=== PATIENT | male | born 1940 | race Caucasian/White ===

== ENCOUNTER 2023-12-26 08:30 | Outpatient (CLI) | payer OTHER, SELFPAY | END 2023-12-26 08:31 | disposition home or self-care (01) | LOC: AMB 12-29 19:27 | PROVIDERS: Visit Provider Internal Medicine | DX: R53.1 Weakness (principal) | CPT/HCPCS: A0998 ==

== ENCOUNTER 2025-03-25 20:34 | Emergency (ER) | payer OTHER, SELFPAY ==
--- OUTSIDE RECORDS SUMMARY | 2019-09-03 09:31 | XMS_ITS | Continuity of Care Document ---
Author Organization [facility] Address [address] [address] [place] [address] Phone Care Team Providers Care Diesel Locomotive Crane Operator Name Role Phone Aquilino Costello MD Unavailable Unavailable Allergies, Adverse Reactions, Alerts Substance Reaction Status Criticality azithromycin Active No Information amoxicillin Active No Information cefaclor Active No Information Medications Medication Instructions Dosage Effective Dates (start - stop) Status Comments simvastatin 20 mg tablet take 1 tablet by oral route every day in the evening 20 MG - Active celecoxib 200 mg capsule take 1 capsule by oral route every day as needed 200 MG - Active lisinopril 10 mg-hydrochlorothiazi de 12.5 mg tablet take 1 tablet by oral route every day 1.00 tablet - Active azelastine 137 mcg (0.1 %) nasal spray aerosol spray 1 spray by intranasal route every day in each nostril as needed 1 spray - Active Flovent Diskus 50 mcg/actuation powder for inhalation inhale 1 puff by inhalation route every day 50 MCG - Active Alavert D-12 Allergy-Sinus 5 mg-120 mg tablet,extended release take 1 tablet by oral route every 12 hours 1.00 tablet - Active Vitamin D3 1,000 unit capsule take 1 tablet by oral route every day 1 tablet - Active Glucosamine Chondroitin PLUS 375 mg-100 mg-36 mg-54 mg capsule take 2 tablet by oral route every day 2 tablet - Active Procedures Procedure Date Ugi Endo; W/bx 1/mx Level Iv-surg Path Gross/micro 18 Colonoscopy Flex; W/remov Les- 17 Colonoscopy Flex; W/bx 1/mx Level Iv-surg Path Gross/micro 17 Advance Directives Directive Yes / No Effective Date File Name No Information Encounters Encounter Description Practice Location Reason(s) For Visit Diagnoses Date Provider Providers Copied on Encounter [facility], [address] [address], [facility] [place] [id number], [place] tel:[phone] [facility] No Information 0 Pravin Rolle. [address], [place], [place], [id number] , [place]. tel: [phone] [facility], [address] [address], [facility] [place], [id number], [place] tel:[phone] [facility] Hiatal herniaAbdominal distension (gaseous)Disease of stomach and duodenum, unspecifiedDiaphrag matic hernia without obstruction or gangrene 8 Peyman Goodwin. [address], [place], [place], [id number] , [place]. tel:[phone] Referring Provider: Landon Hammond MD [place], [address] [place], [address]. tel:[phone] [facility], [address] [address], [facility] [place], [id number], [place] tel:[phone] [facility] Chronic diarrheaColorectal polypsInternal hemorrhoidsDiarrhea , unspecifiedBenign neoplasm of sigmoid colonOther hemorrhoidsBenign neoplasm of sigmoid colon 7 Bartolo Morales. [address], [place], [place], [id number] , [place]. [phone] Referring Provider: Fanny Blum, [address] [place], [address]. tel:[phone] Family History Family Member Type Diagnosis Age At Onset Mother Problem (finding) Sister Problem (finding) Alive and well Brother Problem (finding) Alive and well Mother Problem (finding) malignant neop lasm of breast in first degree relative Daughter Problem (finding) Alive and well Son Problem (finding) Alive and well Father Problem (finding) Payers Payer name Insurance type Covered alliance party ID Authoriza tion(s) No Information Social History Type Description Quantity Date Captured Comments Sex Male Smoking Status No Information Chief Complaint And Reason For Visit No Information Reason For Referral Reason For Referral No Information History Of Present Illness Encounter Date Complaint History Of Prese nt Illness No Information Functional Status Date Functional Assessmen t No Information Instructions Date Instruction Additional Infor matgregor Colon Cancer Prevention Related to Colorectal polyps Colon Polyps Related to Color ectal polyps Hemorrhoids Related to Color ectal polyps high fiber diet Related to Color ectal polyps Assessments Type Assessment Date No Information Patient Care Teams Name Effective Dates (start - stop) Status Members No Information
--- OUTSIDE RECORDS SUMMARY | 2019-09-03 09:31 | XMS_ITS | Continuity of Care Document ---
Author Organization [facility] Address [address] [address] [place] [address] Phone Care Team Providers Care Hydrometer Tester Name Role Phone Aquilino Costello MD Unavailable [...] Diagnoses Date Provider Providers Copied on Encounter [facility], [address] [address], [facility] [place], [id number], [place] tel:[phone] [facility] No Information 0 Pravin Rolle. [address] [facility], [place], [place], [id number] , [place]. tel: [phone] [facility], [address] [address], [facility] [place], [address], [place] tel:[phone] [facility] Hiatal herniaAbdominal distension (gaseous)Disease of stomach and duodenum, unspecifiedDiaphrag matic hernia without obstruction or gangrene 8 Peyman Goodwin. [address] [facility], [place], [place], [id number] , [place]. tel:[phone] Referring Provider: Landon Hammond MD [place], [address] [place], [address]. tel:[phone] [facility], [address] [address], [facility] [place], [id number], [place] tel:[phone] [facility] Chronic diarrheaColorectal polypsInternal hemorrhoidsDiarrhea , unspecifiedBenign neoplasm of sigmoid colonOther hemorrhoidsBenign neoplasm of sigmoid colon 7 Bartolo Morales. [address] [facility], [place], [place], [id number] , [place]. [phone] Referring Provider: Fanny Blum, [address] [place], [address]. tel:[phone] Family History Family Member Type Diagnosis Age At Onset Mother Problem (finding) Sister Problem (finding) Alive and well Brother Problem (finding) Alive and well Mother Problem (finding) malignant neop lasm of breast in first degree relative Daughter Problem (finding) Alive and well Son Problem (finding) Alive and well Father Problem (finding) Payers Payer name Insurance type Covered republican ID Authoriza tion(s) No Information Social History [...]
--- OUTSIDE RECORDS SUMMARY | 2025-03-25 20:36 | XMS_ITS | Encounter Summary ---
Author Organization [facility] Address [address] [place] [address]. [place] [address] Care Team Providers Care Straw Hat Brim Cutter Operator Name Role Phone Finesse Santana MD Primary Care Provider Landon Farley MD Primary Care Provider Encounter Details Date Type Department Care Team (Late st Contact Info) Description 07/17/2016 [facility] [address] [place] [address] Joel Wynn MD [facility] [address] [place] [address] Pre-operative laboratory examination (Primary Dx) Social History Tobacco Use Types Packs/Day Years Used Date Smoking Tobacco: Former Comments:Quit in 1971 Alcohol Use Standard Drinks/Week Comments No 0 (1 standard drink = 0.6 oz pur e alcohol) Sex and Gender Information Value Date Recorded Sex Assigned at Not on file Legal Sex Male 3:34 AM SENIOR PRODUCT INTEGRITY ENGINEER Gender Identity Not on file Sexual Orientation Not on file documented as of this encounter Plan of Treatment Not on file documented as of this encounter Results * Methicillin Resistant Staph Aureus PCR (07/25/2016 12:20 PM SENIOR PRODUCT INTEGRITY ENGINEER) Specimen Description [facility] Methicillin Resist/Sens S. aureus PCR Negative MRSA Negative: SA Negative MRSA and Staphylococcus aureus target DNA not detected, presumed negative for MRSA and SA colonization or the number of bacteria present may be below the limit of detection for the assay. FDA approved assay performed using Cepheid GeneXpert(R) real-time PCR. NEG [facility] 07/25/2016 12:2 0 PM SENIOR PRODUCT INTEGRITY ENGINEER 07/25/2016 1:28 PM SENIOR PRODUCT INTEGRITY ENGINEER us Joel Wynn MD LAB - MICRO GENERAL LOLY [place]AK Final Result [facility] [address] [place] [address], [facility] [address] [place], [place] [address] [phone] documented in this encounter Visit Diagnoses Diagnosis Pre-operative laboratory examination- Primary Pre-procedural laboratory examination documented in this encounter Additional Health Concerns Infection Onset Date Last Indicated Resolved Time COVID-19 07/19/2021 07/19/2021 08/09/2021 11:4 1 PM SENIOR PRODUCT INTEGRITY ENGINEER documented as of this encounter Care Teams Straw Hat Brim Cutter Operator Relationship Specialty Start Date End Date Finesse Santana MD PCP - General Family Practice 07/10/16 07/24/21 [place] [address] [place] [address] PCP - General 07/25/21 documented as of this encounter
--- OUTSIDE RECORDS SUMMARY | 2025-03-25 20:36 | XMS_ITS | Clinical Summary ---
Author Organization [facility] Address [address] [place] [address] Care Team Providers Care Preparator Name Role Phone Landon Hammond MD Primary Care Provider Allergies Active Allergy Reactions Criticality Noted Date Comments Amoxicillin Rash Low 07/17/2016 Cefaclor Rash Low 07/17/2016 Erythromycin Diarrhea 07/17/2016 Azithromycin Rash Low 07/17/2016 Medications Azelastine HCl (ASTELIN NA) Jessie in nostril as needed Active Celecoxib (CELEBREX PO) Take 200 mg by mouth daily Active Cholecalciferol (VITAMIN D-3 PO) Take 400 Units by mouth daily Active fluticasone (FLONASE) 50 MCG/ACT spray Jessie 2 sprays into both nostrils daily as needed for rhinitis or allergies Active glucosamine-cho ndroitin 500-400 MG CAPS per capsule Take 1 capsule by mouth 3 times daily Active lisinopril-hydr ochlorothiazide (PRINZIDE/ZESTO RETIC) 10-12.5 MG per tablet Take 1 tablet by mouth daily Active loratadine-pseu doePHEDrine (CLARITIN-D 12-HOUR) 5-120 MG per 12 hr tablet Take 1 tablet by mouth 2 times daily as needed for allergies Active SIMVASTATIN PO Take 20 mg by mouth At Bedtime Active vitamin B complex with vitamin C (VITAMIN B COMPLEX) TABS tablet Take 1 tablet by mouth daily Active acetaminophen (TYLENOL) 325 MG tabletIndicatio ns:Status post total right knee replacement Take 3 tablets (975 mg) by mouth every 8 hours 500 tablet 7 Active oxyCODONE (ROXICODONE) 5 MG IR tabletIndicatio ns:Status post total right knee replacement 1 tab po q 4 hrs prn pain scale 1-5, 2 tabs po q 4hrs prn pain scale 6-10 65 tablet 7 Active senna-docusate (SENOKOT-S;SIMI COLACE) 8.6-50 MG per tabletIndicatio ns:Status post total right knee replacement Take 1 tablet by mouth 2 times daily as needed for constipation 60 tablet 1 7 Active Active Problems Problem Noted Date Diagnosed Date S/P total knee arthroplasty 08/12/2016 Social History Tobacco Use Types Packs/Day Years Used Date Smoking Tobacco: Former Comments:Quit in 1971 Alcohol Use Standard Drinks/Week Comments No 0 (1 standard drink = 0.6 oz pur e alcohol) Adolescent Education Answer Date Record ed Getting School Help Needed Not on file 03/23 Sex and Gender Information Value Date Recorded Sex Assigned at Not on file Legal Sex Male 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 Gender Identity Not on file Sexual Orientation Not on file Last Filed Vital Signs Vital Sign Reading Time Taken Comments Blood Pressure 147/83 07/25/2021 3:38 PM OIL PIPE INSPECTOR Pulse 53 07/25/2021 3:38 PM OIL PIPE INSPECTOR Temperature 36.2 C (97.1 F) 07/25/2021 11:06 AM OIL PIPE INSPECTOR Respiratory Rate 17 07/25/2021 3:38 PM OIL PIPE INSPECTOR Oxygen Saturation 99% 07/25/2021 3:38 PM OIL PIPE INSPECTOR Inhaled Oxygen Concentration - - Weight 117.5 kg (259 lb) 07/25/2021 11:13 AM OIL PIPE INSPECTOR Height 172.7 cm (5' 8) 08/12/2016 6:36 AM OIL PIPE INSPECTOR Body Mass Index 39.38 08/12/2016 6:36 AM OIL PIPE INSPECTOR Plan of Treatment Not on file Medical Devices Implanted Type Area Boiler Repairman Device Identifier Shelf Expiration Date Model / Serial / Lot Bone Cement Simplex Full Dose [id number] Implanted:Qty : 1 on 08/12/2016 by Joel Wynn MD at [facility] Cement, Bone Right: Knee [employer] 04/22/2018 [id number] 1 / / [id number] Imp Plate Tibial Zim Nexgen Size 5 Implanted:Qty : 1 on 08/12/2016 by Joel Wynn MD at [facility] Metallic Hardware/Anc hor Right: Knee [employer] 03/22/2026 [id number] 47-01 / / [id number] Imp Comp Femoral Zim Nexgen Lps Option Sz G Rt Implanted:Qty : 1 on 08/12/2016 by Joel Wynn MD at [facility] Total Joint Component/In sert Right: Knee [employer] 03/22/2026-5996-0 17-52 / / [id number] Imp Art Surface Zim Nexgen Lps Gh 5-6 10mm [id number] Implanted:Qty : 1 on 08/12/2016 by Joel Wynn MD at [facility] Total Joint Component/In sert Right: Knee [employer] 09/21/2023-5964-0 42-10 / / [id number] Imp Comp Patella Zim Nexgen 9.0x35mm Implanted:Qty : 1 on 08/12/2016 by Joel Wynn MD at [facility] Total Joint Component/In sert Right: Knee [employer] 04/22/2024-5972-0 65-35 / / [id number] Insurance Exit Games Advance Directives For more information, please contact: [phone] * Full Code (Latest Code Status on File) Date Activated Date Inactivated Comments 08/12/2016 11:50 AM 08/13/2016 3:25 PM Care Teams Preparator Relationship Specialty [place] [address] [place] [address] PCP - General 07/25/21
--- OUTSIDE RECORDS SUMMARY | 2025-03-25 20:36 | XMS_ITS | Clinical Summary ---
Author Organization [facility] Address [address] [place] [address] Care Team Providers Care Almond Blancher Hand Name Role Phone Landon Hammond MD Primary Care Provider Allergies Active Allergy Reactions Criticality Noted Date Comments Amoxicillin Rash 05/15/2009 Cefaclor Hives 10/14/2006 Erythromycin Diarrhea 07/17/2016 Azithromycin Diarrhea 06/28/2016 Medications multivitamin (MVI) tablet Take 1 tablet by mouth once daily. 0 9 Active carbidopa-levodop a, 25-100 mg, (SINEMET 25-100) 25-100 mg tabletIndications :Parkinsonism, unspecified Parkinsonism type (HC) 3 Tablets four times daily. Take 1.5 tabs 4 times/ day 3 Active memantine (NAMENDA) 5 mg tablet Take 1 Tablet (5 mg) by mouth two times daily. 4 Active loratadine (Claritin) 10 mg tablet Take 10 mg by mouth once daily. Active magnesium chelate, mal, threon 200 mg magnesium/scoop powd Mix 1 scoop in liquid then take by mouth at bedtime. Active DULoxetine (CYMBALTA) 60 mg Delayed-release capsuleIndication s:Depression, recurrent Take 2 Capsules (120 mg) by mouth once daily. 180 Capsule 3 5 Active metoprolol succinate (TOPROL XL) 50 mg sustained-release tabletIndications :Frequent PVCs Take 0.5 Tablets (25 mg) by mouth once daily. 45 Tablet 3 5 Active Donepezil 23 mg tabIndications:De mentia in other diseases classified elsewhere, moderate, with mood disturbance (HC) Take 1 Tablet (23 mg) by mouth at bedtime. 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, moderate, with mood disturbance 03/14/2023 Increased urinary frequency 01/02/2023 Sleep disorder 07/01/2022 Parkinsonism 10/08/2021 Tremor 07/31/2021 NSVT (nonsustained ventricular tachycardia) 06/23 Chronic right-sided low back pain without sciati ca 08/21/2020 Overview (08/21/2020): Hx of compression fracture L5 circa 1975 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 S/P total knee arthroplasty 08/12/2016 Allergic rhinitis, cause unspecified 09/28/2009 Cancer of prostate 09/08/2008 Overview (07/15/2017): S/p radical prostatectomy in 2008 Essential hypertension 09/08/2008 Overview (09/05/2009): Updated by system to replace inactive record HYPERLIPIDEMIA 08/08/2003 SINUSITIS/CHRONIC 08/20/1999 OSTEOARTHROSIS, GENERALIZED, MULTIPLE SITES 07/25 DIPLOPIA 08/20/1999 LOW BACK PAIN Resolved Problems Problem Noted Date Diagnosed Date Resolved Date Cognitive impairment 07/09/2021 024 S/P foot surgery 09/30/2013 12/19/2022 Tailor's bunion 03/12/2013 01/20/2024 Hematuria 06/13/2004 12/19/2022 ABDOMINAL PAIN UNSPECIFIED SITE 06/13/2004 07/09/2021 Nocturia 06/13/2004 12/19/2022 PROSTATIC HYPERTROPHY 06/13/20042013 SINUSITIS - ACUTE 08/15/2003 08/29/2003 CHONDROMALACIA, PATELLA 11/14/199907/2020 MYLAGIA - NOS 08/20/1999 12/19/2022 KNEE PAIN 07/15/2017 Encounters Date Type Department Care Team Description 02/15/2025 2:55 PM CDT Office Visit [address] [address] Landon Hammond MD Follow Up 02/15/2025 Travel 02/14/2025 Nurse Triage [address] [address] Landon Hammond MD Blood In Urine 01/24/2025 10:15 AM CDT Office Visit [address] [address] Landon Hammond MD Medicare ANNUAL (subsequent) Visit (Ears, wondering about having them cleaned) 01/24/2025 Travel 01/19/[address] [address] Landon Hammond MD Refill Request (Metoprolol Succinate) from Last 3 Months Immunizations Immunization Administration Dates Next Due AMB Influenza, IIV3 (Age >=3 years)(Flu Clinic Only) 03/24/2012,04/08/2011,04/12/2008 AMB Influenza, IIV4 PF (=>6 mos Flulaval,Fluzone Fluarix)(Flu Clinic Only) 03/11/2014 COVID-19 vaccine (Moderna Redd gayathri 50mcg/0.25mL) PF, MDV 05/25/2021 COVID-19 vaccine ([employer] NThike 30mcg/0.3mL) PF, MDV 08/31/2020,08/10/2020 Influenza, High-dose Inactivated 03/13/2024,03/24,03/31/2015 Influenza, High-dose Quadriv alent Inactivated 03/06/2020 Influenza, IIV3 (Age 6-35 mos) 04/08/2011 Influenza, IIV3 (Age >=3 years) 03/10/2013,04/03 Influenza, Inactivated AIIV4 (Age 65+ Years) Preserv Free 03/19/2023,03/25/2022,07/31/2021 Influenza, Inactivated IIV3 (Age 65+ Years) Preserv Free 03/17/2019,04/07/2018,03/05/2017 Pneumococcal Poly,23-Valent (Pneumovax) 04/28/20 22,03/10/2006 Pneumococcal conj 13-Valent (Prevnar 13) 015 Td (Age >=7 Years) 08/22/1995 Td, Preservative Free (age >= 7 Years) 6 Tdap 07/31/2021,03/19/2011 Zoster (Zostavax-ZVL, live) 09/25/2011 Family History Medical History Relation Name Comments Asthma Brother Other Father emphysema Asthma Mother Hypertension Mother Premature CHD (under age 60) Neg. none Genetic Other Mother; HTN, as thma.~Father; emphysema.~Sis;allergies~Bro:Asthma~MGF- Parkinson's~MGM- stomach CA~PGF-~PGM-~no history of MH or other anesthetic problems. Allergies Sister Relation Name Status Comments Brother Father Mother Alive Neg. Other Sister Social History Tobacco Use Types Packs/Day Years Used Date Smoking Tobacco: Former Cigarettes 1 10 0 12/01/1959 - 11/30/1969 Smokeless Tobacco: Never Tobacco Cessation:Counseling Given: No Alcohol Use Standard Drinks/Week Comments No 0 (1 standard drink = 0.6 oz pur e alcohol) PHQ-2 Answer Date Recorded PHQ-2 TOTAL SCORE 0 01/20/2024 Social Connections Answer Date Recorded Do you often feel lonely or isolated from those around you? 0 01/24/2025 Financial Resource Strain Answer Date R ecorded Difficulty of Paying Living Expenses 3 01/24/2025 Difficulty of Paying Living Expenses Not on file 01/24/2025 Food Insecurity Answer Date Recorded Do you worry your food will run out before you are able to buy more? 1 01/24/2025 Transportation Needs Answer Date Record ed Does lack of transportation keep you from medica l appointments? 1 01/24/2025 Does lack of transportation keep you from work, meetings or getting things that you need? 1 01/24/2025 Housing Stability Answer Date Recorded What is your housing situation today? 1 01/24/2025 Utilities Answer Date Recorded Do you have trouble paying f or utilities (for example, heat, electricity, water, phone)? 1 01/24/2025 Sex and Gender Information Value Date Recorded Sex Assigned at Male 07/06/2021 2:13 PM MEDICAL RECRUITER Legal Sex Male 5:17 AM MEDICAL RECRUITER Gender Identity Not on file Sexual Orientation Not on file Occupation Industry Job Start Date Job End Date Retired Not on file Not on file Not on file Obstetrics History Last Filed Vital Signs Vital Sign Reading Time Taken Comments Blood Pressure 132/64 02/15/2025 3:02 PM CDT Pulse 68 02/15/2025 3:02 PM CDT Temperature 36.4 C (97.5 F) 06/12/2022 9:56 AM MEDICAL RECRUITER Respiratory Rate 18 07/25/2021 9:41 AM MEDICAL RECRUITER Oxygen Saturation 98% 07/25/2021 9:41 AM MEDICAL RECRUITER Inhaled Oxygen Concentration - - Weight 106.6 kg (235 lb) 02/15/2025 3:02 PM CDT Height 167.6 cm (5' 6) 01/24/2025 10:17 AM CDT Body Mass Index 37.93 01/24/2025 10:17 AM CDT Plan of Treatment Health Maintenance Due Date Last Done Comments Zoster (shingles) series for age 50+ (2 of 3) 11/20/2011 09/25/2011 RSV vaccine for adults or (1 - 1-dose 75+ series) 01/28/2016 Depression screening for age 12+ 01/19/2025 01/20/2024, 12/19/2022, 12/19/2022, Additional history exists COVID-19 vaccine series ( season) 2025 04/28/2022, 05/25/2021, 08/31/2020, Additional history exists Influenza Vaccine (#1) 2025 , 03/19/2023, 03/25/2022, Additional history exists BMI (ht and wt on same day) for age 18+ 01/24/2026 01/24/2025, 01/20/2024, 12/19/2022, Additional history exists Medicare Wellness for age 65+ 01/25/2026 01/24/2025, 01/20/2024, 08/27/2021, Additional history exists Tetanus booster 07/31/2031 07/31/2021, 02/22, 03/10/2006, Additional history exists Pneumococcal series for age 50+ Completed 04/28/2022, 10/21/2014, 03/10/2006 Hepatitis B series for 19+ Aged Out N o longer eligible based on patient's age to complete this topic Medical Devices Implanted Type Area Patient Care Specialist Device Identifier Shelf Expiration Date Model / Serial / Lot Wire K 4in .[id number] - [id number] Implanted:Qty: 1 on 09/13/2013 at [facility] Imp., Pins, Rods, Wires Right: Foot K-MEDIC [id number] / / Explanted Type Area Patient Care Specialist Device Identifier Shelf Expiration Date Model / Serial / Lot Wire K 4in .[id number] - [id number] Explanted:Qty: 1 on 09/13/2013 at [facility] Right: Foot K-MEDIC [id number]# / / Insurance MEDICARE PART B HB ONLY [employer] [place] [id number] MEDICARE PART A HB ONLY Advance Directives Documents on File Type Date Recorded Patient Station Gateman Expl anation Power of Graduating Machine Operator 01/02/2023 8:36 AM Power of Graduating Machine Operator 01/30/22 * DNR (Latest Code Status on File) Date Activated Date Inactivated Comments 01/20/2024 10:15 AM * Full Code Date Activated Date Inactivated Comments 09/13/2013 9:08 AM 09/13/2013 5:09 PM Care Teams Almond Blancher Hand Relationship Specialty Start [place] [address] [place] [address] PCP - General Family Practice 07/15/17
[2025-03-25 20:57] VITALS: BP 127/68; PULSE 85; RESP 18; TEMP 36.1; O2SAT 96
--- NOTE | 2025-03-25 21:04 | ED.GENADULT ---
HPI - General Adult General Time Seen by Provider: 21:04 Date Seen: 03/25/25 Chief complaint: Skin/Abscess/Foreign Body Stated complaint: pressure sores on butt Time Seen by Provider: 03/25/25 21:04 Source: patient, family and RN notes reviewed Mode of arrival: ambulatory Limitations: altered mental status (Patient has dementia) History of Present Illness HPI narrative: This 85-year-old male with dementia is brought in by his for concern of a change in his behavior. He has pressure ulcers on his buttocks that are known. After dinner, he went into his lift chair and was sitting upright in this chair. He started clenching his arms and grimacing, became sweaty. This is not his typical behavior. He is not really coughing, no other change in status. She was worried that something was wrong with him. He does not have any questioning on the chair or any type of material put down to help with offsetting pressure from his buttocks. He has not had any fevers. He has not been sick with anything. He is nonverbal. Besides his advanced dementia, he does have underlying Parkinson's. His has been cleaning the sores and using Neosporin on them. Related Data Home Medications ?Medication ?Instructions ?Recorded ?Confirmed carbidopa 25 mg-levodopa 100 mg 3 tab PO 5XD 03/25/25 03/25/25 tablet donepezil 23 mg tablet 23 mg PO QPM 03/25/25 03/25/25 duloxetine 60 mg capsule,delayed 120 mg PO DAILY 03/25/25 03/25/25 release memantine 5 mg tablet 5 mg PO BID 03/25/25 03/25/25 metoprolol succinate 50 mg 25 mg PO DAILY 03/25/25 03/25/25 tablet,extended release 24 hr Allergies Allergy/AdvReac Type Severity Reaction Status Date / Time amoxicillin Allergy Rash Verified 03/25/25 20:57 cefaclor (From Ceclor) Allergy Hives Verified 03/25/25 20:57 azithromycin (From Zithromax) AdvReac Diarrhea Verified 03/25/25 20:57 erythromycin base AdvReac Diarrhea Verified 03/25/25 20:57 Review of Systems Status of ROS: Reports: unobtainable due to mental status Exam Const: Vital Signs, click to edit/add: Vital Signs - 24 hr 03/25/25 20:57 03/25/25 21:19 03/25/25 21:30 Temperature 96.9 F L Pulse Rate [Right Pulse Oximeter] 85 Respiratory Rate 18 18 22 Blood Pressure Blood Pressure [Ri ght Upper Arm] 127/68 Pulse Oximetry 96 Oxygen Delivery Me thod Room Air 03/25/25 21:45 03/25/25 21:55 Temperature Pulse Rate [Right Pulse Oximeter] Respiratory Rate 22 15 Blood Pressure 127/64 Blood Pressure [Ri ght Upper Arm] Pulse Oximetry Oxygen Delivery Me thod This 85-year-old male is alert, looking around but not interactive with us, nonverbal. He has shaking of his right arm more than his left. Sclera clear. Gaze is conjugate. Face atraumatic, skin is warm and dry right now, not diaphoretic and he is afebrile here. Lungs are clear, good air entry, no wheezing or crackles or tachypnea. CV regular rate and rhythm, no murmur. Abdomen is not distended, does not seem tender on palpation, feel no masses or organomegaly. Staff did help me roll the patient, he has 2 pressure ulcers which overlie a each buttock. It is into the subcutaneous tissue but there is no drainage, no odor, no significant swelling or erythema. These wounds actually look to be well kept at this time. Documenting provider has reviewed patient's vital signs: yes Course Course ED Course: We will check some basic labs to ensure that we are not seen an elevated white count her lactate which would point towards infectious etiology. He is much more comfortable reclining. We discussed positioning to help offset pressure on his tailbone in buttocks. He may need some type of question in his chair, there are many specialty things made to help alleviate pressure. I also think he may benefit from a wound consult and will certainly put a recommendation in if she is willing at discharge. Reevaluation(s) Time of Reevaluation #1: 22:13 Reevaluation #1: Reviewed normal labs. There really does not seem to be any evidence of infection based on clinical evaluation. She declines doing wound clinic referral, is comfortable talking to his doctor. She understands he needs to get some type of question or something to help offset the pressure on his buttocks. We discussed reclining his chair back, he seems quite comfortable in the bed with the head reclined down to about 30?. She will continue with Tylenol, has been doing that at home. We did discuss narcotic pain medicine but she and I both agree that it is best to avoid this. With his dementia and Parkinson's, do think that this would give him significant risks of complications and side effects from narcotic use. Vital Signs Vital signs: Initial Vital Signs Temperature 96.9 F L 03/25/25 20:57 Temperature Source Temporal Artery Scan 03/25/25 20:57 Pulse Rate 85 03/25/25 20:57 Respiratory Rate 18 03/25/25 20:57 Blood Pressure 127/68 03/25/25 20:57 Blood Pressure Mean 87 03/25/25 20:57 Blood Pressure Position Sitting 03/25/25 20:57 Pulse Oximetry 96 03/25/25 20:57 Oxygen Delivery Method Room Air 03/25/25 20:57 Vital Signs Temperature 96.9 F L 03/25/25 20:57 Pulse Rate 85 03/25/25 20:57 Respiratory Rate 18 03/25/25 20:57 Blood Pressure 127/68 03/25/25 20:57 Pulse Oximetry 96 03/25/25 20:57 Oxygen Delivery Method Room Air 03/25/25 20:57 Temperature 96.9 F L 03/25/25 20:57 Pulse Rate 85 03/25/25 20:57 Respiratory Rate 15 03/25/25 21:55 Blood Pressure 127/64 03/25/25 21:55 Pulse Oximetry 96 03/25/25 20:57 Oxygen Delivery Method Room Air 03/25/25 20:57 Medical Decision Making Lab Data Labs: Lab Results 03/25/25 Range/Units 21:19 WBC 7.05 (4.50-11.00) K/uL RBC 4.86 (4.30-5.90) m/uL Hgb 15.9 (13.5-17.5) gm/dL Hct 49.3 (37.0-53.0) % MCV 101 H (80-100) fL MCH 33 (26-34) pg MCHC 32 (32-36) gm/dL RDW Coeff of Akbar 12.3 (11.5-15.5) % Plt Count 225 (140-440) K/uL Neut % (Auto) 63.6 (42.0-72.0) % Lymph % (Auto) 25.2 (20-44) % Steele % (Auto) 9.5 (0.0-11.0) % Eos % (Auto) 1.3 (0.0-7.0) % Baso % (Auto) 0.3 (0.0-3.0) % Neut # (Auto) 4.48 (1.7-7.0) K/uL Lymph # (Auto) 1.78 (0.90-2.90) K/uL Steele # (Auto) 0.70 (0.00-0.90) K/UL Eos # (Auto) 0.09 (0.00-0.50) K/uL Baso # (Auto) 0.02 (0.00-0.30) K/uL Abs Immat Gran (auto) 0.01 (0.00-0.30) K/uL Imm/Tot Granulo (auto) 0.1 % Sodium 145 (135-149) mmol/L Potassium 3.8 (3.6-5.1) mmol/L Chloride 111 (96-114) mmol/L Carbon Dioxide 29 (20-32) mmol/L Anion Gap 5 L (7-15) mEq/L BUN 19 (7-30) mg/dL Creatinine 0.7 (0.5-1.5) mg/dL Estimated GFR 91 ml/min Glucose 94 (60-115) mg/dL Lactate 1.9 (0.5-1.9) mmol/L Calcium 9.0 (8.4-10.6) mg/dL C-Reactive Protein < 0.5 L (0.5-1.0) mg/dL Discharge Plan Discharge Clinical Impression: Pressure ulcer of buttock Qualifiers: Pressure injury stage: unspecified pressure injury stage Laterality: unspecified laterality Qualified Code(s): L89.309 - Pressure ulcer of unspecified buttock, unspecified stage Patient Disposition: Home w/ Parent or Adult Condition: Stable Instructions: Pressure Injury (ED) Additional Instructions: Attempt to offload pressure on his buttocks, having him reclined further may help. You need to talk to his provider about getting some type of special cushion for him to sit on to help alleviate pressure. Recommend bacitracin over Neosporin. Consider referral to the Wound Clinic, talk to your doctor about this further. If there is purulent drainage, concern for infection developing of these wounds, please seek re-evaluation. Right now they are clean, look well cared for but there are other wound treatments that the Wound Center would have to help in healing these. Activity Level: Activity as Tolerated Prescriptions: No Action metoprolol succinate 50 mg tablet extended release 24 hr 25 mg PO DAILY carbidopa-levodopa 25-100 mg tablet 3 tab PO 5XD memantine 5 mg tablet 5 mg PO BID duloxetine 60 mg capsule,delayed release(DR/EC) 120 mg PO DAILY donepezil 23 mg tablet 23 mg PO QPM Follow Up/Referrals: Provider,Not a Local [Primary Care Provider, Family Practice] Stand Alone Forms: [employer] Info Instructions
[2025-03-25 21:19] VITALS: RESP 18
[2025-03-25 21:23] LABS: Lactate* 1.9 mmol/L (0.5-1.9)
[2025-03-25 21:24] LABS: Hematocrit* 49.3 % (37.0-53.0); Hemoglobin* 15.9 gm/dL (13.5-17.5); Immature Granulocytes Abs Auto 0.01 K/uL (0.00-0.30); Immature Granulocytes Pct Auto 0.1 %; Lymphocytes Absolute Auto 1.78 K/uL (0.90-2.90); Mean Corpuscular HGB Conc 32 gm/dL (32-36); Mean Corpuscular Hemoglobin 33 pg (26-34); Mean Corpuscular Volume 101 fL (80-100); RDW Coefficient of Variation % 12.3 % (11.5-15.5); Red Blood Count* 4.86 m/uL (4.30-5.90); White Blood Count* 7.05 K/uL (4.50-11.00)
[2025-03-25 21:30] VITALS: RESP 22
[2025-03-25 21:44] LABS: Chloride* 111 mmol/L (96-114); Potassium* 3.8 mmol/L (3.6-5.1); Slide Review Reflex No; Sodium* 145 mmol/L (135-149)
[2025-03-25 21:45] VITALS: RESP 22
[2025-03-25 21:48] LABS: Anion Gap 5 mEq/L (7-15); Blood Urea Nitrogen* 19 mg/dL (7-30); Calcium* 9.0 mg/dL (8.4-10.6); Carbon Dioxide* 29 mmol/L (20-32); Creatinine* 0.7 mg/dL (0.5-1.5); Estimated Glomerular Filt Rate 91 ml/min; Glucose* 94 mg/dL (60-115)
[2025-03-25 21:55] VITALS: BP 127/64; RESP 15
== END 2025-03-25 22:30 | disposition home or self-care (01) ==
PROVIDERS: Emergency Provider Family Medicine
DX: L89.310 Pressure ulcer of right buttock, unstageable (principal); L89.320 Pressure ulcer of left buttock, unstageable
CPT/HCPCS: 36415; 80048; 83605; 85025; 86140; 99283; 99284